=== PATIENT | male | born 1945 | race Caucasian/White ===

== ENCOUNTER → 2018-05-26 | Outpatient (CLI) | payer OTHER ==
--- NOTE | 2018-05-26 08:12 | US ---
EXAMINATION TYPE: US liver DATE OF EXAM: 05/26/2018 COMPARISON: US report from a [place] US CLINICAL HISTORY: R94.5 Abnormal liver functions. EXAM MEASUREMENTS: Liver Length: 11.3 cm Gallbladder Wall: 0.5 cm CBD: 0.5 cm Right Kidney: 12.3 x 6.3 x 5.9 cm Limited exam due to midline bowel gas. Pancreas: not well visualized due to midline bowel gas Liver: limited visualization due to bowel gas Gallbladder: appears contracted, multiple stones seen, wall thickened Evidence for sonographic Hannah's sign: No CBD: wnl Right Kidney: No hydronephrosis or masses seen IMPRESSION: 1 cholelithiasis with gallbladder contraction. Wall thickening noted without pericholecys tic fluid or CBD dilatation. Correlate clinically.
== END | disposition home or self-care (01) ==
LOC: RADUSWWP 07:26
PROVIDERS: ATTEND Family Medicine
DX: K80.11 Calculus of gallbladder with chronic cholecystitis with obstruction (principal)
CPT/HCPCS: 76705

== ENCOUNTER → 2018-06-07 | Outpatient (CLI) | payer MEDICARE ==
[2018-06-07 12:55] LABS: Blood Urea Nitrogen 22 mg/dL (9-20)
--- NOTE | 2018-06-08 07:17 | CT ---
EXAMINATION TYPE: CT abdomen pelvis w con DATE OF EXAM: 06/07/2018 COMPARISON: None INDICATION: Cholelithiasis DLP: 1548.2 mGycm, Automated exposure control for dose reduction was used. CONTRAST: 100 mL of Isovue 300. Study performed with Oral Contrast TECHNIQUE: Axial images were obtained from above the diaphragm to the pubic rami in the axial plane a t 5 mm thick sections. Reconstructed images are reviewed on the computer in the coronal plane. FINDINGS: Limited CT sections are obtained the lung bases. There is a 0.8 cm nodular density in the periphery of the right middle lobe. Series 4 image 5 pleural-based tiny density measuring 0.6 cm in length on t he lateral right lung base. Series 4 image 10. A 0.8 cm lobular densities along the periphery of the lateral left lung base. Series 4 image 16. Other calcifications along the right diaphragm. Prior asbe stos exposure could be considered. Small hiatal hernia may be present. CT ABDOMEN: Liver: Normal. No biliary dilatation is evident. Spleen: Normal Pancreas: Normal Adrenal glands: The adrenal glands are normal. Gallbladder: Gallstones are present. No pericholecystic fluid is identified. Kidneys: No masses are evident. No hydronephrosis is present. There is a 2.3 cm cyst measuring 10 H [place] units on the anterior mid left kidney. Extrarenal pelvis is present on the left. Delayed i mages were obtained through the kidneys, which remain unremarkable. Aorta: Vascular calcification is within the aorta. Inferior vena cava: Normal. CT PELVIS: Loops of bowel within the abdomen and pelvis are normal. There are loops of bowel which are incom pletely distended or lack oral contrast limiting their evaluation. Appendix: Normal as visualized. Urinary bladder: Small urinary bladder diverticulum is present on the posterior lateral right. Genitourinary structures: Prostate is normal. Osseous structures: No suspicious lytic or sclerotic lesions. Facet changes are within the lumbar spi ne IMPRESSIONS: 1. Left renal simple appearing cyst. 2. Cholelithiasis. 3. Probable urinary bladder diverticulum. 4. Scattered small densities within the visualized lung bases. CT chest could be performed for additi onal evaluation.
== END | disposition home or self-care (01) ==
LOC: RADCTMAIN 11:59
PROVIDERS: ATTEND Surgery
DX: K80.20 Calculus of gallbladder without cholecystitis without obstruction (principal); N28.1 Cyst of kidney, acquired
CPT/HCPCS: 82565; 84520; 74177; 36415; Q9967

== ENCOUNTER → 2018-06-23 | Day surgery (SDC) | payer MEDICARE, OTHER ==
[2018-06-20 09:21] VITALS: BMI 33.2
[~2018-06-23] MED LIST: DEXAMETHASONE SOD PHOS (MDV) 100 MG/10 ML VIAL IVP ONE; GLYCOPYRROLATE 0.2 MG/ML 2 ML VIAL ONE; HYDROmorphone (PF) 1 MG/ML ONE; LACTATED RINGERS 1,000 ML IV ONE; LACTATED RINGERS 1,000 ML IV SCH; LIDOCAINE 1% 20 ML VIAL (10MG/ML) FOR IV START INTRADERMA ONE; LIDOCAINE 1% INJ 10MG/ML (20 ML MDV) ONE; MIDAZOLAM 2 MG/2 ML VIAL ONE; NEOSTIGMINE 1 MG/ML 10 ML VIAL ONE; ONDANSETRON 4 MG/2 ML VIAL IVP ONE; ROCURONIUM BROMIDE 10 MG/ML 10 ML VIAL IV ONE; ROPIVACAINE 5 MG/ML 30 ML VIAL MISCELLANE ONE; ceFAZolin IN SWFI 2 GM/20 ML SYRINGE IVP ONE; ePHEDrine SULFATE/0.9% NACL/PF 50 MG/5 ML SYRINGE IV ONE; fentaNYL (PF) 50 MCG/ML 2 ML AMP ONE
[2018-06-23 10:37] LABS: Glucose,Whole Blood 110 mg/dL (75-99)
--- NOTE | 2018-06-23 13:47 | P.OP ---
Date of Procedure: 06/23/18 Preoperative Diagnosis: Cholelithiasis chronic cholecystitis Postoperative Diagnosis: Cholelithiasis chronic cholecystitis with possible early cirrhosis Procedure(s) Performed: Laparoscopic cholecystectomy and laparoscopic liver biopsy Anesthesia: BRADLEY Surgeon: Alan Uriarte Estimated Blood Loss (ml): 20 Pathology: other (Gallbladder with stones and liver biopsy) Condition: stable Disposition: PACU Indications for Procedure: The patient is a 73-year-old white male who has symptomatic gallstones. Slight elevation of his bilirubin to 1.8 but other liver enzymes were unremarkable. Laparoscopic cholecystectomy possible open was recommended and informed consent was obtained procedure have been explained to her including potential complication particular bleeding infection surrounding injury pain cardiac respiratory problems etc. he understood and agree to proceed. Ultrasound showed multiple gallstones and a computed tomography scan was unremarkable for any obstructive condition. Operative Findings: Cholelithiasis chronic cholecystitis with a small contracted gallbladder hepatomegaly and some nodularity of the liver consistent with possible early cirrhosis. Description of Procedure: After induction of general endotracheal anesthesia the abdominal wall was prepped in the usual fashion and draped. Local anesthetic Marcaine 0.5% plain was infiltrated into the skin and subcutaneous tissue just below the umbilicus where a transverse incision was made about the 2 cm and deepened through the subcutaneous fat. The fascia was exposed infiltrated with the Marcaine retracted and a Veress needle inserted under direct vision with a satisfactory saline drop test. The peritoneal cavity were then inflated with carbon dioxide to pressure approximately 15 millimeters mercury. The needle was replaced with a 10 mm trocar and the laparoscope inserted. 2-5 mm trochars were placed in the right upper quadrant and another 5 mm trocar in the epigastrium under direct vision under local anesthesia. Visual exploration revealed some nodularity of the liver more micronodules with hepatomegaly. The gallbladder was very small contracted and there were extensive omental adhesions to it. It was difficult to grasp and retract. There were some omental adhesions in the right lower quadrant. The omental adhesion to the gallbladder carefully lysed sharply dissection using electrocautery until the entire gallbladder was exposed. The area of the neck was then very carefully dissected this been very difficult because of the very small thickened and chronically inflamed gallbladder. The cystic duct was also quite thick and it was exposed and skeletonized along its length and the junction with the gallbladder, duct well visualized. Due to the thickness of the cystic duct 12 mm clips had to be used with replacement of the 10 mm trocar with a 12 mm trocar in the umbilical area. The cystic duct closure was further reinforced and closed with a 2-0 Prolene Endoloops suture. The cystic artery was then identified little more superiorly and this was dissected doubly clipped and divided. The gallbladder was then dissected from its bed and removed through the umbilical port site in an Endo Catch bag. Supra and infrahepatic spaces were thoroughly irrigated. Hemostasis was good and the field was dry. A punch liver biopsy was obtained from the anterior inferior edge of the liver and hemostasis secured with electrocautery. All trochars were then removed and vision after the umbilical port site was closed with a 2- 0 Vicryl stitch using the Bradley Torres apparatus CO2 was evacuated. Umbilical and other trocar sites were closed with the interrupted 4-0 Monocryl for the skin and Steri-Strips. Dressings were applied. All counts were correct. Blood loss was less than 20 mL's. The patient remained stable was transferred to the recovery room in good and stable condition. After an adequate period of observation patient with discharged home. Advised on a low-fat diet. [place] 5/325 one every 4-6 hours when necessary for pain. No heavy lifting or straining for a week. May shower from tomorrow. Return appointment to the office in about a week. May resume his home meds. Plan - Discharge Summary New Discharge Prescriptions: No Action glipiZIDE [Glucotrol XL] 10 mg PO DAILY Lisinopril [Zestril] 10 mg PO DAILY Levothyroxine Sodium [Levo-T] 150 mcg PO DAILY Simvastatin 40 mg PO DAILY Aspirin [Adult Low Dose Aspirin EC] 81 mg PO DAILY Discharge Medication List Aspirin [Adult Low Dose Aspirin EC] 81 mg PO DAILY 06/20/18 [History] Levothyroxine Sodium [Levo-T] 150 mcg PO DAILY 06/20/18 [History] Lisinopril [Zestril] 10 mg PO DAILY 06/20/18 [History] Simvastatin 40 mg PO DAILY 06/20/18 [History] glipiZIDE [Glucotrol XL] 10 mg PO DAILY 06/20/18 [History]
[2018-06-23 13:54] VITALS: RESP 16; TEMP 97.1
[2018-06-23 14:04] LABS: Glucose,Whole Blood 154 mg/dL (75-99)
[2018-06-23 15:32] VITALS: BP 110/76; PULSE 63
== END ==
LOC: OR 09:34
PROVIDERS: ATTEND Surgery
DX: K80.10 Calculus of gallbladder with chronic cholecystitis without obstruction (principal); R16.0 Hepatomegaly, not elsewhere classified; K66.0 Peritoneal adhesions (postprocedural) (postinfection); I10 Essential (primary) hypertension; E78.00 Pure hypercholesterolemia, unspecified; E03.9 Hypothyroidism, unspecified; E10.9 Type 1 diabetes mellitus without complications; Z79.84 Long term (current) use of oral hypoglycemic drugs; Z79.82 Long term (current) use of aspirin; Z79.890 Hormone replacement therapy; Z79.899 Other long term (current) drug therapy
CPT/HCPCS: 47562; 47379; 88304; 88313; 88307; J2250; J2710; J2405; J2001; J3010; J1170; J1100; J2795; J0690

== ENCOUNTER → 2018-08-07 | Outpatient (CLI) | payer MEDICARE ==
[2018-08-07 08:24] LABS: Blood Urea Nitrogen 18 mg/dL (9-20)
--- NOTE | 2018-08-07 08:59 | CT ---
EXAMINATION TYPE: CT chest w con DATE OF EXAM: 08/07/2018 COMPARISON: None HISTORY: Density in Lung CT DLP: 431.0 mGycm Automated exposure control for dose reduction was used. CONTRAST: CT scan of the chest is performed with IV Contrast, patient injected with 100 mL of Isovue 300. 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 Pleural-based nodular density left lateral sulcus measuring 8 mm image 49 of 58. Pleural-based nod ule lateral segment right middle lobe measures 5.7 mm. Additional 2 mm nodule lateral segment right m iddle lobe images 37 and 36. Right upper lobe 3 mm nodule image 29. No additional nodules seen. No ev idence for mass or focal consolidation. MEDIASTINUM: There are no greater than 1 cm hilar or mediastinal lymph nodes. No pericardial effusi on is seen. Thoracic aorta is of normal caliber. The heart is not enlarged. UPPER ABDOMEN: No significant abnormality appreciated. OTHER: No additional significant abnormality is seen. IMPRESSION: As best as related pleural disease. 2. Scattered nonspecific pulmonary nodularity. Follow-up in 6 months is advised.
== END | disposition home or self-care (01) ==
LOC: RADCTMAIN 07:35
PROVIDERS: ATTEND Surgery
DX: J92.9 Pleural plaque without asbestos (principal); R91.1 Solitary pulmonary nodule
CPT/HCPCS: 82565; 84520; 71260; 36415; Q9967

== ENCOUNTER 2018-12-31 12:36 | Inpatient (IN) | payer MEDICARE, OTHER ==
[2018-12-31] MEDS ORDERED: SODIUM CHLORIDE 0.9% 1,000 ML IV STA (12:48)
--- NOTE | 2018-12-31 12:49 | ED ---
Chest Pain HPI - General Chief Complaint: Chest Pain Stated Complaint: sent by [facility] Time Seen by Provider: 12/31/18 12:48 Source: patient Mode of arrival: ambulatory Limitations: no limitations - History of Present Illness Initial Comments: This is a 73-year-old male the ER for evaluation chest pain chest pain when he takes a deep breath. Chest. Positive short of breath with movement or activity. Patient was seen emetics rest today and sent to ER for evaluation. Patient does have PVCs on his EKG when he states he has history of PVCs, patient does have high blood pressure cholesterol diabetes and a history of smoking. No prior cardiac evaluation. No fevers cough or congestion MD Complaint: chest pain -: hour(s) Onset: during rest Pain Location: substernal, left chest Pain Radiation: none Severity: mild Severity scale (1-10): 3 Quality: heaviness Consistency: constant Improves With: nothing Worsens With: nothing Anginal Symptoms: other (None) Other Symptoms: other (None) - Related Data Home Medications Medication Instructions Recorded Confirmed Levothyroxine Sodium [Levo-T] 150 mcg PO HS 06/20/18 12/31/18 Lisinopril [Zestril] 10 mg PO DAILY 06/20/18 12/31/18 Simvastatin 40 mg PO HS 06/20/18 12/31/18 glipiZIDE [Glucotrol XL] 10 mg PO DAILY 06/20/18 12/31/18 Cholecalciferol [Vitamin D3] 5,000 unit PO DAILY 12/31/18 12/31/18 Naproxen Sodium [Aleve] 220 mg PO DAILY 12/31/18 12/31/18 Testosterone Cypionate 200 mg IM Q21D 12/31/18 12/31/18 [Depo-Testosterone] Allergies Allergy/AdvReac Type Severity Reaction Status Date / Time No Known Allergies Allergy Verified 12/31/18 13:08 Review of Systems ROS Statement: Those systems with pertinent positive or pertinent negative responses have been documented in the HPI. ROS Other: All systems not noted in ROS Statement are negative. EKG Findings - EKG Comments: EKG Findings:: EKG shows sinus tach cardia rate of 101, SC 144, QRS 84, QTC 443 Past Medical History Past Medical History: Diabetes Mellitus, Hyperlipidemia, Hypertension, Thyroid Disorder History of Any Multi-Drug Resistant Organisms: None Reported Past Surgical History: Cholecystectomy Past Psychological History: No Psychological Hx Reported Smoking Status: Former smoker Past Alcohol Use History: Occasional Past Drug Use History: None Reported General Exam Limitations: no limitations General appearance: alert, in no apparent distress Head exam: Present: atraumatic, normocephalic, normal inspection Eye exam: Present: normal appearance, PERRL, EOMI. Absent: scleral icterus, conjunctival injection, periorbital swelling ENT exam: Present: normal exam, mucous membranes moist Neck exam: Present: normal inspection. Absent: tenderness, meningismus, lymphadenopathy Respiratory exam: Present: normal lung sounds bilaterally. Absent: respiratory distress, wheezes, rales, rhonchi, stridor Cardiovascular Exam: Present: regular rate, normal rhythm, normal heart sounds. Absent: systolic murmur, diastolic murmur, rubs, gallop, clicks GI/Abdominal exam: Present: soft, normal bowel sounds. Absent: distended, tenderness, guarding, rebound, rigid Extremities exam: Present: normal inspection, full ROM, normal capillary refill. Absent: tenderness, pedal edema, joint swelling, calf tenderness Back exam: Present: normal inspection Neurological exam: Present: alert, oriented X3, CN II-XII intact Psychiatric exam: Present: normal affect, normal mood Skin exam: Present: warm, dry, intact, normal color. Absent: rash Course Vital Signs 12/31/18 12/31/18 12/31/18 12:39 14:00 14:30 Temperature 98.0 F Pulse Rate 100 101 H 98 Respiratory 18 18 18 Rate Blood Pressure 120/76 109/50 111/59 O2 Sat by Pulse 96 95 94 L Oximetry - Reevaluation(s) Reevaluation #1: 12/31/18 13:18 Medical record is reviewed including my express EKG Reevaluation #2: 12/31/18 15:26 Patient still with same pain currently mainly with shortness of breath, mainly takes a deep breath Reevaluation #3: 12/31/18 15:26 Studies Chest x-ray shows pneumonia and pleural effusion, CTA chest shows same findings, no PE Chest Pain MDM - MDM Every 4 male with chest pain exertional dyspnea. Patient does have significant pneumonia with leukocytosis oxygen around 90%. Patient will be admitted for treatment of pneumonia and cardiology evaluation regarding pleural effusion possible CHF. As well as chest pain Critical Care Time Critical Care Time: Yes Total Critical Care Time: 31 Disposition Clinical Impression: Chest pain, Community acquired pneumonia, Pleural effusion Disposition: ADMITTED IP TO THIS HOSP Condition: Fair Is patient prescribed a controlled substance at d/c from ED?: No Referrals: Demar Tee DO [Primary Care Provider] - 1-2 days
--- NOTE | 2018-12-31 13:56 | XR ---
EXAMINATION TYPE: XR chest 2V DATE OF EXAM: 12/31/2018 COMPARISON: None INDICATION: Chest pain TECHNIQUE: Frontal and lateral views of the chest are obtained. FINDINGS: The heart size is normal. The pulmonary vasculature is normal. There is blunting of the right costophrenic angle. Small right pleural effusion appears to be present . Some adjacent infiltrate may be present. Correlate for atelectasis and pneumonia. Some mild atelect asis appears to be at the left base. IMPRESSION: 1. Small right pleural effusion. 2. Right basilar infiltrate. Correlate for atelectasis or pneumonia. 3. Platelike atelectasis left base.
[2018-12-31 14:01] LABS: Basophils % (A) 0 %; Eosinophils # (A) 0.1 k/uL (0-0.7); Eosinophils % (A) 0 %; HCT 54.4 % (39.0-53.0); HGB 17.5 gm/dL (13.0-17.5); Lymphocytes # (A) 2.4 k/uL (1.0-4.8); Lymphocytes % (A) 11 %; MCH 29.2 pg (25.0-35.0); MCHC 32.2 g/dL (31.0-37.0); MCV 90.7 fL (80.0-100.0); Mean Platelet Volume 7.6; Monocytes # (A) 1.8 k/uL (0-1.0); Monocytes % (A) 8 %; Neutrophils # (A) 17.8 k/uL (1.3-7.7); Neutrophils % (A) 80 %; Platelet Count 213 k/uL (150-450); RBC 5.99 m/uL (4.30-5.90); RDW 15.2 % (11.5-15.5); WBC 22.4 k/uL (3.8-10.6)
[2018-12-31 14:20] LABS: Albumin 3.7 g/dL (3.5-5.0); Calcium 9.6 mg/dL (8.4-10.2); Magnesium 1.8 mg/dL (1.6-2.3); Total Bilirubin 2.4 mg/dL (0.2-1.3)
[2018-12-31 14:22] LABS: Potassium 4.9 mmol/L (3.5-5.1)
[2018-12-31 14:39] LABS: INR 1.2 (<1.2); Partial Thromboplastin Time 27.2 sec (22.0-30.0); Prothrombin Time 12.6 sec (9.0-12.0)
--- NOTE | 2018-12-31 15:09 | CT ---
EXAMINATION TYPE: CT angio chest DATE OF EXAM: 12/31/2018 2:58 PM COMPARISON: None HISTORY: chest pain, hx of htn CT DLP: 457.2 mGycm Automated exposure control for dose reduction was used. CONTRAST: CTA scan of the thorax is performed with IV Contrast, patient injected with 72cc mL of Isovue 370, pu lmonary embolism protocol. There are 3-D post processed images.. FINDINGS: There is right pleural effusion. There is bilateral lower lobe pulmonary infiltrate and atelectasis. Heart is enlarged. There is no pericardial effusion. There is no mediastinal adenopathy. There are no hilar masses. Thoracic aorta is atheromatous. There is normal contrast opacification of the pulmonar y arteries. I see no filling defect. The bony thorax is intact. There is spurring in the thoracic spi ne. There is pleural calcification on the right side. IMPRESSION: NO EVIDENCE OF PULMONARY EMBOLISM. BILATERAL PULMONARY INFILTRATES AND ATELECTASIS. RIGHT PLEURAL EFFUSION. CONGESTIVE HEART FAILURE IS POSSIBLE. The extensive pulmonary infiltrates and pleural fluid are new compared to old chest CT scan of 08/07/2018.
[2018-12-31] MEDS ORDERED: NITROGLYCERIN SL TABS 0.4 MG TAB SUBLINGUAL PRN (15:20)
[2018-12-31] MEDS ORDERED: ASPIRIN 81 MG PO STA (15:20)
[2018-12-31] MEDS ORDERED: PNEUMONIA PROTOCOL UTILIZED 1 EACH MISC PO PRN (15:20)
[2018-12-31] MEDS ORDERED: AZITHROMYCIN 500 MG in SODIUM CHLORIDE 0.9% 250 ML IVPB STA (15:20)
[2018-12-31] MEDS ORDERED: IPRATROPIUM-ALBUTEROL 3 ML NEB INHALATION PRN (15:20)
[2018-12-31] MEDS ORDERED: IPRATROPIUM-ALBUTEROL 3 ML NEB INHALATION STA (15:20)
[2018-12-31 21:07] LABS: Glucose,Whole Blood 150 mg/dL (75-99)
[2018-12-31] MEDS: LEVOTHYROXINE 75 MCG TAB PO SCH (22:26)
[2018-12-31] MEDS: ATORVASTATIN 20 MG TAB PO SCH (22:26)
[2018-12-31] MEDS: SODIUM CHLORIDE 0.9% 1,000 ML IV SCH (23:55)
[2019-01-01 00:40] LABS: Cholesterol 76 mg/dL (<200); HDL Cholesterol 28 mg/dL (40-60); LDL Cholesterol,Calculated 34 mg/dL (0-99); Triglycerides 71 mg/dL (<150)
[2019-01-01] MEDS: SODIUM CHLORIDE 0.9% 1,000 ML IV SCH ×3 (02:36→21:30)
[2019-01-01 06:13] LABS: Glucose,Whole Blood 96 mg/dL (75-99)
[2019-01-01] MEDS: INSULIN ASPART (NovoLOG) 100 UNIT/ML VIAL SQ SCH ×4 (06:29→21:28)
[2019-01-01] MEDS ORDERED: ASPIRIN 325 MG TAB PO SCH (09:00)
[2019-01-01] MEDS ORDERED: ENOXAPARIN 40 MG/0.4 ML SYRINGE SQ SCH (09:00)
--- NOTE | 2019-01-01 09:00 | XR ---
EXAMINATION TYPE: XR chest 2V DATE OF EXAM: 01/01/2019 COMPARISON: 12/31/2018 TECHNIQUE: PA and lateral views submitted. HISTORY: Pneumonia FINDINGS: There is interval increased consolidation pleural effusion on the right and interval subsegmental con solidation on the left. Perihilar infiltrate is new. Biapical pleural thickening. Interstitial patter n noted. Atherosclerotic change aorta. Arthropathy of the shoulders. IMPRESSION: 1. Worsening chest x-ray with increasing consolidation and pleural fluid on the right. Correlate for worsening pneumonia or CHF.
[2019-01-01] MEDS: glipiZIDE 5 MG TAB PO SCH ×2 (09:10→17:19)
[2019-01-01] MEDS: NAPROXEN 250 MG TAB PO SCH (09:17)
[2019-01-01] MEDS: LISINOPRIL 10 MG TAB PO SCH (09:28)
[2019-01-01] MEDS: CHOLECALCIFEROL 1,000 UNIT TAB PO SCH (09:28)
--- NOTE | 2019-01-01 09:34 | P.CRDCN ---
History of Present Illness Consult date: 01/01/19 Requesting physician: Christine Jennings Consult reason: chest pain Chief complaint: Chest pain History of present illness: This is a pleasant 73-year-old gentleman with history of hypertension, hyperlipidemia, hypothyroidism, diabetes, nonsmoker, who presented to the hospital with symptoms of right-sided chest pain which she describes as a sharp pain in the chest that is present only when he takes a deep breath or coughs. According to the patient he and his both have been dealing with a cough at home for the past few days. He denies any fever or chills at home. His chest x-ray on admission here showed a small right-sided pleural effusion and right basilar infiltrate. CTA of the chest was performed on arrival here as well which was negative for pulmonary embolism. It did reveal bilateral pulmonary infiltrates and atelectasis. Right-sided pleural effusion. EKG showed a sinus tachycardia with occasional PVCs. Chest x-ray showed worsening consolidation and pleural fluid on the right. Blood pressure on arrival 120/70 with a heart rate of 100, temperature 90.8, 96% on room air. Patient did have a low-grade temperature yesterday afternoon, temperature this morning 98.1, heart rate in the 70s, blood pressure 146/80, 93% on 2 L of oxygen. White blood cell count on arrival here 22.4, hemoglobin 17, platelet count 213. Sodium 135, potassium 4.9, BUN 25 and creatinine 1.0. Magnesium 1.8. Troponin 0.0123, BNP 209. Past Medical History Past Medical History: Diabetes Mellitus, Hyperlipidemia, Hypertension, Thyroid Disorder History of Any Multi-Drug Resistant Organisms: None Reported Past Surgical History: Cholecystectomy Past Psychological History: No Psychological Hx Reported Smoking Status: Former smoker Past Alcohol Use History: Occasional Past Drug Use History: None Reported - Past Family History Father Family Medical History: Diabetes Mellitus Medications and Allergies Home Medications Medication Instructions Recorded Confirmed Type Levothyroxine Sodium [Levo-T] 150 mcg PO HS 06/20/18 12/31/18 History Lisinopril [Zestril] 10 mg PO DAILY 06/20/18 12/31/18 History Simvastatin 40 mg PO HS 06/20/18 12/31/18 History glipiZIDE [Glucotrol XL] 10 mg PO DAILY 06/20/18 12/31/18 History Cholecalciferol [Vitamin D3] 5,000 unit PO DAILY 12/31/18 12/31/18 History Naproxen Sodium [Aleve] 220 mg PO DAILY 12/31/18 12/31/18 History Testosterone Cypionate 200 mg IM Q21D 12/31/18 12/31/18 History [Depo-Testosterone] Allergies Allergy/AdvReac Type Severity Reaction Status Date / Time No Known Allergies Allergy Verified 12/31/18 13:08 Physical Exam Vitals: Vital Signs Temp Pulse Pulse Resp BP BP Pulse Ox 01/01/19 08:00 98.1 F 76 18 147/85 93 L 01/01/19 04:00 98.6 F 87 18 109/64 92 L 01/01/19 00:00 98.7 F 88 18 139/74 93 L 12/31/18 20:00 16 12/31/18 19:02 98.1 F 102 H 20 151/71 92 L 12/31/18 18:00 98.4 F 101 H 18 110/66 94 L 12/31/18 16:30 83 20 115/65 95 12/31/18 15:50 86 12/31/18 15:41 85 12/31/18 15:40 99.0 F 99 16 126/62 92 L 12/31/18 15:30 97.8 F 99 18 120/74 96 12/31/18 14:30 98 18 111/59 94 L 12/31/18 14:00 101 H 18 109/50 95 12/31/18 12:39 98.0 F 100 18 120/76 96 Intake and Output 12/31/18 01/01/19 01/01/19 22:59 06:59 14:59 Other: Voiding Method Toilet Weight 104.36 kg PHYSICAL EXAMINATION: GENERAL: 73-year-old gentleman in no acute distress at the time of my examination HEENT: Head is atraumatic, normocephalic. Pupils equal, round. Sclera anicteric. Conjunctiva are clear. Mucous membranes of the mouth are moist. Neck is supple. There is no elevated jugular venous pressure. No carotid bruit is heard. HEART EXAMINATION: Heart S1, S2 normal. No murmur or gallop heard. CHEST EXAMINATION: Lungs reveal diminished air entry to the right posterior base with fine crackles bilaterally. ABDOMEN: Soft, nontender. Bowel sounds are heard. No organomegaly noted. EXTREMITIES: 2+ peripheral pulses with trace evidence of peripheral edema and no calf tenderness noted. NEUROLOGIC patient is awake, alert and oriented 3 . . Results 12/31/18 13:00 12/31/18 13:00 Cardiac Enzymes 12/31/18 12/31/18 12/31/18 Range/Units 13:00 13:00 19:09 AST 35 (17-59) U/L Troponin I <0.012 <0.012 (0.000-0.034) ng/mL 01/01/19 Range/Units 00:45 AST (17-59) U/L Troponin I <0.012 (0.000-0.034) ng/mL Coagulation 12/31/18 Range/Units 13:00 PT 12.6 H (9.0-12.0) sec APTT 27.2 (22.0-30.0) sec Lipids 12/31/18 Range/Units 13:00 Triglycerides 71 (<150) mg/dL Cholesterol 76 (<200) mg/dL HDL Cholesterol 28 L (40-60) mg/dL CBC 12/31/18 Range/Units 13:00 WBC 22.4 H (3.8-10.6) k/uL RBC 5.99 H (4.30-5.90) m/uL Hgb 17.5 (13.0-17.5) gm/dL Hct 54.4 H (39.0-53.0) % Plt Count 213 (150-450) k/uL Comprehensive Metabolic Panel 12/31/18 Range/Units 13:00 Sodium 135 L (137-145) mmol/L Potassium 4.9 (3.5-5.1) mmol/L Chloride 103 (98-107) mmol/L Carbon Dioxide 21 L (22-30) mmol/L BUN 25 H (9-20) mg/dL Creatinine 1.09 (0.66-1.25) mg/dL Glucose 185 H (74-99) mg/dL Calcium 9.6 (8.4-10.2) mg/dL AST 35 (17-59) U/L ALT 36 (21-72) U/L Alkaline Phosphatase 122 (38-126) U/L Total Protein 8.0 (6.3-8.2) g/dL Albumin 3.7 (3.5-5.0) g/dL Current Medications Generic Name Dose Route Start Last Admin Trade Name Freq PRN Reason Stop Dose Admin Albuterol/Ipratropium 3 ml 12/31/18 15:20 Duoneb 0.5 Mg-3 Mg/3 Ml Soln INHALATION RT-Q4H PRN shortness of breath Aspirin 325 mg 01/01/19 09:00 Aspirin PO DAILY [facility] Atorvastatin Calcium 20 mg 12/31/18 21:00 12/31/18 22:26 Lipitor PO 20 mg HS [facility] Administration Cholecalciferol 5,000 unit 01/01/19 09:00 Vitamin D3 PO DAILY [facility] Enoxaparin Sodium 40 mg 01/01/19 09:00 Lovenox SQ DAILY [facility] Glipizide 5 mg 01/01/19 07:30 01/01/19 09:10 Glucotrol PO Not Given AC-BID [facility] Azithromycin 500 mg/ Sodium 250 mls @ 125 mls/hr 01/01/19 16:00 Chloride IVPB Q24H [facility] Ceftriaxone Sodium 1 gm/ 50 mls @ 100 mls/hr 01/01/19 16:00 Sodium Chloride IVPB 01/04/19 16:01 Q24H [facility] Sodium Chloride 1,000 mls @ 100 mls/hr 12/31/18 15:30 01/01/19 02:36 Saline 0.9% IV Not Given .Q10H [facility] Insulin Aspart 0 unit 01/01/19 07:30 01/01/19 06:29 Novolog SQ Not Given ACHS [facility] Protocol Levothyroxine Sodium 150 mcg 12/31/18 21:00 12/31/18 22:26 Synthroid PO 150 mcg HS [facility] Administration Lisinopril 10 mg 01/01/19 09:00 Zestril PO DAILY [facility] Miscellaneous Information 1 each 12/31/18 15:20 Pneumonia Protocol Utilized PO ONCE PRN Per Protocol Naproxen 250 mg 01/01/19 09:00 01/01/19 09:17 Naprosyn PO Not Given DAILY [facility] Nitroglycerin 0.4 mg 12/31/18 15:20 Nitrostat SUBLINGUAL Q5M PRN Chest Pain Testosterone Cypionate 200 mg 01/03/19 09:00 Depo-Testosterone IM Q21D [facility] Intake and Output 12/31/18 01/01/19 01/01/19 22:59 06:59 14:59 Other: Voiding Method Toilet Weight 104.36 kg 12/31/18 13:00 12/31/18 13:00 EKG Interpretations (text) EKG shows a sinus tachycardia with occasional to frequent PVCs. Assessment and Plan Plan: Assessment and plan #1 chest pain, atypical for acute coronary syndrome, pleuritic in nature. Troponins negative 3. EKG shows a sinus tachycardia with occasional to frequent PVCs. #2 bilateral infiltrate with evidence of right sided pleural effusion, patient currently on antibiotics for pneumonia. #3 hypertension #4 diabetes #5 hyperlipidemia #6 hypothyroidism Plan The patient's pain is very atypical for acute coronary syndrome, we will obtain an echocardiogram with Doppler study. Discontinue Lanoxin apparent. Decrease aspirin 81 mg daily. Check a TSH level. Patient denies ever having a cardiac workup in the past, once his pneumonia clears we will follow him in the office and do outpatient stress testing down the road. Further recommendations to follow. DNP note has been reviewed, I agree with a documented findings and plan of care. Patient was seen and examined.
--- NOTE | 2019-01-01 10:44 | P.CRDCN ---
History of Present Illness History of present illness: 69 for a male patient presenting with pleuritic chest discomfort right-sided with bilateral pneumonitis Underlying type 2 diabetes and hypertension Twelve-lead ECG shows sinus rhythm with frequent PVCs PVCs have a left bundle branch block morphology and a QS pattern in the inferior leads 2-D echo shows preserved LV systolic function LDL 34 HDL 28 total cholesterol 76 BUN 25 creatinine 1.09 GFR greater than 60 potassium normal Elevated white count with a leftward shift Plan Watch blood pressure and maximize lisinopril as tolerated/needed Outpatient cardiac workup Continue treatment for pneumonitis I will see him as an outpatient within 4 weeks post discharge Past Medical History Past Medical History: Diabetes Mellitus, Hyperlipidemia, Hypertension, Thyroid Disorder History of Any Multi-Drug Resistant Organisms: None Reported Past Surgical History: Cholecystectomy Past Psychological History: No Psychological Hx Reported Smoking Status: Former smoker Past Alcohol Use History: Occasional Past Drug Use History: None Reported - Past Family History Father Family Medical History: Diabetes Mellitus Medications and Allergies Home Medications Medication Instructions Recorded Confirmed Type Levothyroxine Sodium [Levo-T] 150 mcg PO HS 06/20/18 12/31/18 History Lisinopril [Zestril] 10 mg PO DAILY 06/20/18 12/31/18 History Simvastatin 40 mg PO HS 06/20/18 12/31/18 History glipiZIDE [Glucotrol XL] 10 mg PO DAILY 06/20/18 12/31/18 History Cholecalciferol [Vitamin D3] 5,000 unit PO DAILY 12/31/18 12/31/18 History Naproxen Sodium [Aleve] 220 mg PO DAILY 12/31/18 12/31/18 History Testosterone Cypionate 200 mg IM Q21D 12/31/18 12/31/18 History [Depo-Testosterone] Allergies Allergy/AdvReac Type Severity Reaction Status Date / Time No Known Allergies Allergy Verified 12/31/18 13:08 Physical Exam Vitals: Vital Signs Temp Pulse Pulse Resp BP BP Pulse Ox 01/01/19 08:00 98.1 F 76 18 147/85 93 L 01/01/19 04:00 98.6 F 87 18 109/64 92 L 01/01/19 00:00 98.7 F 88 18 139/74 93 L 12/31/18 20:00 16 12/31/18 19:02 98.1 F 102 H 20 151/71 92 L 12/31/18 18:00 98.4 F 101 H 18 110/66 94 L 12/31/18 16:30 83 20 115/65 95 12/31/18 15:50 86 12/31/18 15:41 85 12/31/18 15:40 99.0 F 99 16 126/62 92 L 12/31/18 15:30 97.8 F 99 18 120/74 96 12/31/18 14:30 98 18 111/59 94 L 12/31/18 14:00 101 H 18 109/50 95 12/31/18 12:39 98.0 F 100 18 120/76 96 Intake and Output 12/31/18 01/01/19 01/01/19 22:59 06:59 14:59 Other: Voiding Method Toilet Weight 104.36 kg Results 12/31/18 13:00 12/31/18 13:00 Cardiac Enzymes 12/31/18 12/31/18 12/31/18 Range/Units 13:00 13:00 19:09 AST 35 (17-59) U/L Troponin I <0.012 <0.012 (0.000-0.034) ng/mL 01/01/19 Range/Units 00:45 AST (17-59) U/L Troponin I <0.012 (0.000-0.034) ng/mL Coagulation 12/31/18 Range/Units 13:00 PT 12.6 H (9.0-12.0) sec APTT 27.2 (22.0-30.0) sec Lipids 12/31/18 Range/Units 13:00 Triglycerides 71 (<150) mg/dL Cholesterol 76 (<200) mg/dL HDL Cholesterol 28 L (40-60) mg/dL CBC 12/31/18 Range/Units 13:00 WBC 22.4 H (3.8-10.6) k/uL RBC 5.99 H (4.30-5.90) m/uL Hgb 17.5 (13.0-17.5) gm/dL Hct 54.4 H (39.0-53.0) % Plt Count 213 (150-450) k/uL Comprehensive Metabolic Panel 12/31/18 Range/Units 13:00 Sodium 135 L (137-145) mmol/L Potassium 4.9 (3.5-5.1) mmol/L Chloride 103 (98-107) mmol/L Carbon Dioxide 21 L (22-30) mmol/L BUN 25 H (9-20) mg/dL Creatinine 1.09 (0.66-1.25) mg/dL Glucose 185 H (74-99) mg/dL Calcium 9.6 (8.4-10.2) mg/dL AST 35 (17-59) U/L ALT 36 (21-72) U/L Alkaline Phosphatase 122 (38-126) U/L Total Protein 8.0 (6.3-8.2) g/dL Albumin 3.7 (3.5-5.0) g/dL Current Medications Generic Name Dose Route Start Last Admin Trade Name Freq PRN Reason Stop Dose Admin Albuterol/Ipratropium 3 ml 12/31/18 15:20 Duoneb 0.5 Mg-3 Mg/3 Ml Soln INHALATION RT-Q4H PRN shortness of breath Aspirin 81 mg 01/02/19 09:00 Aspirin PO DAILY [facility] Atorvastatin Calcium 20 mg 12/31/18 21:00 12/31/18 22:26 Lipitor PO 20 mg HS [facility] Administration Cholecalciferol 5,000 unit 01/01/19 09:00 01/01/19 09:28 Vitamin D3 PO 5,000 unit DAILY [facility] Administration Glipizide 5 mg 01/01/19 07:30 01/01/19 09:10 Glucotrol PO Not Given AC-BID [facility] Azithromycin 500 mg/ Sodium 250 mls @ 125 mls/hr 01/01/19 16:00 Chloride IVPB Q24H [facility] Ceftriaxone Sodium 1 gm/ 50 mls @ 100 mls/hr 01/01/19 16:00 Sodium Chloride IVPB 01/04/19 16:01 Q24H [facility] Sodium Chloride 1,000 mls @ 100 mls/hr 12/31/18 15:30 01/01/19 09:32 Saline 0.9% IV 100 mls/hr .Q10H [facility] Administration Insulin Aspart 0 unit 01/01/19 07:30 01/01/19 06:29 Novolog SQ Not Given ACHS [facility] Protocol Levothyroxine Sodium 150 mcg 12/31/18 21:00 12/31/18 22:26 Synthroid PO 150 mcg HS [facility] Administration Lisinopril 10 mg 01/01/19 09:00 01/01/19 09:28 Zestril PO 10 mg DAILY [facility] Administration Miscellaneous Information 1 each 12/31/18 15:20 Pneumonia Protocol Utilized PO ONCE PRN Per Protocol Naproxen 250 mg 01/01/19 09:00 01/01/19 09:17 Naprosyn PO Not Given DAILY [facility] Nitroglycerin 0.4 mg 12/31/18 15:20 Nitrostat SUBLINGUAL Q5M PRN Chest Pain Testosterone Cypionate 200 mg 01/03/19 09:00 Depo-Testosterone IM Q21D [facility] Intake and Output 12/31/18 01/01/19 01/01/19 22:59 06:59 14:59 Other: Voiding Method Toilet Weight 104.36 kg 12/31/18 13:00 12/31/18 13:00
[2019-01-01 11:28] LABS: Glucose,Whole Blood 178 mg/dL (75-99)
--- NOTE | 2019-01-01 12:05 | ECHOF ---
Referral Reason:chest pain MEASUREMENTS -------- HEIGHT: 182.9 cm WEIGHT: 104.3 kg BP: RVIDd: 2.7 cm (< 3.3) IVSd: 1.2 cm (0.6 - 1.1) LVIDd: 4.5 cm (3.9 - 5.3) LVPWd: 1.3 cm (0.6 - 1.1) IVSs: 1.5 cm LVIDs: 2.6 cm LVPWs: 1.9 cm Ao Diam: 3.3 cm (2.0 - 3.7) AV Cusp: 2.2 cm (1.5 - 2.6) LA Diam: 3.1 cm (2.7 - 3.8) MV EXCURSION: 13.666 mm (> 18.000) MV EF SLOPE: 53 mm/s (70 - 150) EPSS: 0.8 cm MV E Edvon: 0.51 m/s MV DecT: 244 ms MV A Devon: 0.71 m/s MV E/A Ratio: 0.71 RAP: 5.00 mmHg RVSP: 14.41 mmHg FINDINGS -------- Sinus rhythm with extra systolic beats. This was a technically difficult study with suboptimal views. The left ventricular size is normal. There is mild concentric left ventricular hypertrophy. Overa ll left ventricular systolic function is normal with, an EF between 55 - 60 %. The right ventricle is normal in size. The left atrial size is normal. The right atrial size is normal. Lumason used The aortic valve is trileaflet and appears structurally normal. There is trace mitral regurgitation. Trace tricuspid regurgitation present. The right ventricular systolic pressure, as measured by Dopp ler, is 14.41mmHg. There is no pulmonic regurgitation present. The aortic root size is normal. IVC Not well visulized. There is no pericardial effusion. CONCLUSIONS -------- 1. Sinus rhythm with extra systolic beats. 2. This was a technically difficult study with suboptimal views. 3. The left ventricular size is normal. 4. There is mild concentric left ventricular hypertrophy. 5. Overall left ventricular systolic function is normal with, an EF between 55 - 60 %. 6. The right ventricle is normal in size. 7. The left atrial size is normal. 8. The right atrial size is normal. 9. Lumason used 10. The aortic valve is trileaflet and appears structurally normal. 11. There is trace mitral regurgitation. 12. Trace tricuspid regurgitation present. 13. The right ventricular systolic pressure, as measured by Doppler, is 14.41mmHg. 14. There is no pulmonic regurgitation present. 15. The aortic root size is normal. 16. IVC Not well visulized. 17. There is no pericardial effusion. [employer]ER: Carolyn Cool RDCS
[2019-01-01 14:50] VITALS: BMI 32.1
[2019-01-01 15:04] LABS: Hemoglobin A1C 5.7 % (4.0-6.0)
[2019-01-01] MEDS ORDERED: AZITHROMYCIN 500 MG in SODIUM CHLORIDE 0.9% 250 ML IVPB SCH (16:00)
[2019-01-01 16:28] LABS: Glucose,Whole Blood 151 mg/dL (75-99)
[2019-01-01] MEDS: IPRATROPIUM-ALBUTEROL 3 ML NEB INHALATION SCH (19:32)
[2019-01-01] MEDS: LEVOTHYROXINE 75 MCG TAB PO SCH (21:33)
[2019-01-01] MEDS: ATORVASTATIN 20 MG TAB PO SCH (21:33)
--- NOTE | 2019-01-01 21:42 | P.HPIM ---
History of Present Illness H&P Date: 01/01/19 Chief Complaint: shortness of breath Patient is a 73-year-old male with a known history of diabetes type 2, hypertension, hyperlipidemia and hypothyroidism and history of previous smoking came to ER with the complaints of right lower lung sharp pain with deep breathing worsening for the past 2 days. Patient did have cough 1 week prior to admission. Otherwise denied any fever or chills at home. No complaints of nausea vomiting or abdominal pain or diarrhea. No dysuria or hematuria. Chest x-ray showed small right-sided pleural effusion and right basilar infiltrate. CT angiogram of the chest showed no evidence of pulmonary embolism. It didn't reveal bilateral pulmonary infiltrates and atelectasis. Right-sided pleural effusion. EKG showed sinus tachycardia with occasional PVCs Influenza negative Troponin 3 negative. BNP is 209 WBC 22.4 Review of Systems Constitutional: Patient denies any fever or chills . No generalized weakness or weight loss. Abdomen: Patient denied nausea vomiting and diarrhea and abdominal pain. Cardiovascular: Patient denies any chest pain or short of breath no palpitations. Respiratory: Patient does have cough without shortness of breath.. Right lower lung pain with deep breathing Neurologic: Patient denied any numbness or tingling headache. Musculoskeletal: Patient denies any complaints of joint swelling or deformity. Skin: Negative Psychiatric: Negative Endocrine: No heat or cold intolerance. No recent weight gain. Genitourinary: No dysuria or hematuria. All other 14 point ROS negative except the above Past Medical History Past Medical History: Diabetes Mellitus, Hyperlipidemia, Hypertension, Thyroid Disorder History of Any Multi-Drug Resistant Organisms: None Reported Past Surgical History: Cholecystectomy Past Psychological History: No Psychological Hx Reported Smoking Status: Former smoker Past Alcohol Use History: Occasional Past Drug Use History: None Reported - Past Family History Father Family Medical History: Diabetes Mellitus Medications and Allergies Home Medications Medication Instructions Recorded Confirmed Type Levothyroxine Sodium [Levo-T] 150 mcg PO HS 06/20/18 12/31/18 History Lisinopril [Zestril] 10 mg PO DAILY 06/20/18 12/31/18 History Simvastatin 40 mg PO HS 06/20/18 12/31/18 History glipiZIDE [Glucotrol XL] 10 mg PO DAILY 06/20/18 12/31/18 History Cholecalciferol [Vitamin D3] 5,000 unit PO DAILY 12/31/18 12/31/18 History Naproxen Sodium [Aleve] 220 mg PO DAILY 12/31/18 12/31/18 History Testosterone Cypionate 200 mg IM Q21D 12/31/18 12/31/18 History [Depo-Testosterone] Allergies Allergy/AdvReac Type Severity Reaction Status Date / Time No Known Allergies Allergy Verified 12/31/18 13:08 Physical Exam Vitals: Vital Signs Temp Pulse Pulse Resp BP BP Pulse Ox 01/01/19 08:00 98.1 F 76 18 147/85 93 L 01/01/19 04:00 98.6 F 87 18 109/64 92 L 01/01/19 00:00 98.7 F 88 18 139/74 93 L 12/31/18 20:00 16 12/31/18 19:02 98.1 F 102 H 20 151/71 92 L 12/31/18 18:00 98.4 F 101 H 18 110/66 94 L 12/31/18 16:30 83 20 115/65 95 12/31/18 15:50 86 12/31/18 15:41 85 12/31/18 15:40 99.0 F 99 16 126/62 92 L 12/31/18 15:30 97.8 F 99 18 120/74 96 12/31/18 14:30 98 18 111/59 94 L 12/31/18 14:00 101 H 18 109/50 95 12/31/18 12:39 98.0 F 100 18 120/76 96 Intake and Output 12/31/18 01/01/19 01/01/19 22:59 06:59 14:59 Other: Voiding Method Toilet Weight 104.36 kg PHYSICAL EXAMINATION: Patient is lying in the bed comfortably, no acute distress, awake alert and oriented.. HEENT: Normocephalic. Neck is supple. Pupils reactive. Nostrils clear. Oral cavity is moist. Ears reveal no drainage. Neck reveals no JVD, carotid bruits, or thyromegaly. CHEST EXAMINATION: Trachea is central. Symmetrical expansion. Right basilar coarse breath sounds and no wheezing. CARDIAC: Normal S1, S2 with no gallops. No murmurs ABDOMEN: Soft. Bowel sounds normal. No organomegaly. No abdominal bruits. Extremities: reveal no edema. No clubbing or cyanosis Neurologically awake, alert, oriented x3 with well-coordinated movements. No focal deficits noted Skin: No rash or skin lesions. Psychiatric: Coperative. Nonsuicidal Musculoskeletal: No joint swelling or deformity. Normal range of motion. Results CBC & Chem 7: 12/31/18 13:00 12/31/18 13:00 Labs: Abnormal Lab Results - Last 24 Hours (Table) 12/31/18 12/31/18 12/31/18 Range/Units 13:00 13:00 13:00 WBC 22.4 H (3.8-10.6) k/uL RBC 5.99 H (4.30-5.90) m/uL Hct 54.4 H (39.0-53.0) % Neutrophils # 17.8 H (1.3-7.7) k/uL Monocytes # 1.8 H (0-1.0) k/uL PT 12.6 H (9.0-12.0) sec INR 1.2 H (<1.2) Sodium 135 L (137-145) mmol/L Carbon Dioxide 21 L (22-30) mmol/L BUN 25 H (9-20) mg/dL Glucose 185 H (74-99) mg/dL POC Glucose (mg/dL) (75-99) mg/dL Total Bilirubin 2.4 H (0.2-1.3) mg/dL HDL Cholesterol (40-60) mg/dL 12/31/18 12/31/18 01/01/19 Range/Units 13:00 21:06 11:21 WBC (3.8-10.6) k/uL RBC (4.30-5.90) m/uL Hct (39.0-53.0) % Neutrophils # (1.3-7.7) k/uL Monocytes # (0-1.0) k/uL PT (9.0-12.0) sec INR (<1.2) Sodium (137-145) mmol/L Carbon Dioxide (22-30) mmol/L BUN (9-20) mg/dL Glucose (74-99) mg/dL POC Glucose (mg/dL) 150 H 178 H (75-99) mg/dL Total Bilirubin (0.2-1.3) mg/dL HDL Cholesterol 28 L (40-60) mg/dL Thrombosis Risk Factor Assmnt - DVT/VTE Prophylaxis DVT/VTE Prophylaxis: Pharmacologic Prophylaxis ordered - Choose All That Apply Each Risk Factor Represents 2 Points: Age 61-74 years Other congenital or acquired thrombophilia - If yes, enter type in comment: No Thrombosis Risk Factor Assessment Total Risk Factor Score: 2 Thrombosis Risk Factor Assessment Level: Low Risk Assessment and Plan Assessment: Bilateral pneumonia with right-sided pleural effusion Sepsis secondary to pneumonia Atypical chest pain likely pleuritic. Ruled out ACS. Diabetes type 2 [id number] Hypertension Hyperlipidemia Hypothyroidism History of cholecystectomy Previous history of smoking DVT prophylaxis with heparin subcu Plan: Patient will be continued on antibiotics in the form of ceftriaxone and azithromycin. Continue with IV hydration. Right-sided pleural effusion unli kvng due to CHF. Serial troponins negative. Cardiology is following. 2-D echocardiogram was ordered. Follow-up culture reports. Further recommendations based on the clinical course. Discussed with the family in detail at bedside. Time with Patient: Greater than 30
[2019-01-01 23:18] LABS: Glucose,Whole Blood 164 mg/dL (75-99)
[2019-01-02] MEDS: IPRATROPIUM-ALBUTEROL 3 ML NEB INHALATION SCH ×3 (00:05→07:51)
[2019-01-02] MEDS: HEPARIN SODIUM,PORCINE 5,000 UNIT/ML 1 ML VIAL SQ SCH ×4 (00:14→22:30)
[2019-01-02 05:41] LABS: Glucose,Whole Blood 140 mg/dL (75-99)
[2019-01-02] MEDS: INSULIN ASPART (NovoLOG) 100 UNIT/ML VIAL SQ SCH ×4 (06:32→19:49)
[2019-01-02] MEDS: glipiZIDE 5 MG TAB PO SCH ×2 (06:34→17:28)
[2019-01-02 06:45] LABS: Basophils % (A) 0 %; Eosinophils % (A) 0 %; HCT 47.8 % (39.0-53.0); HGB 15.4 gm/dL (13.0-17.5); Lymphocytes # (A) 2.1 k/uL (1.0-4.8); Lymphocytes % (A) 14 %; MCH 29.6 pg (25.0-35.0); MCHC 32.2 g/dL (31.0-37.0); Mean Platelet Volume 6.9; Monocytes # (A) 1.5 k/uL (0-1.0); Monocytes % (A) 10 %; Neutrophils # (A) 11.4 k/uL (1.3-7.7); Neutrophils % (A) 74 %; Platelet Count 198 k/uL (150-450); RDW 15.4 % (11.5-15.5); WBC 15.3 k/uL (3.8-10.6)
[2019-01-02 06:55] LABS: ALT 26 U/L (21-72); AST 21 U/L (17-59); Albumin 2.5 g/dL (3.5-5.0); Alkaline Phosphatase 106 U/L (38-126); Anion Gap 6 mmol/L; Blood Urea Nitrogen 22 mg/dL (9-20); Calcium 8.4 mg/dL (8.4-10.2); Carbon Dioxide 23 mmol/L (22-30); Chloride 106 mmol/L (98-107); Glucose 133 mg/dL (74-99); Potassium 4.6 mmol/L (3.5-5.1); Sodium 135 mmol/L (137-145); Total Bilirubin 1.7 mg/dL (0.2-1.3); Total Protein 5.6 g/dL (6.3-8.2)
[2019-01-02] MEDS: SODIUM CHLORIDE 0.9% 1,000 ML IV SCH (08:00)
[2019-01-02] MEDS: LISINOPRIL 10 MG TAB PO SCH (08:03)
[2019-01-02] MEDS: ASPIRIN 81 MG PO SCH (08:03)
[2019-01-02] MEDS: CHOLECALCIFEROL 1,000 UNIT TAB PO SCH (08:03)
[2019-01-02] MEDS: NAPROXEN 250 MG TAB PO SCH (08:03)
[2019-01-02] MEDS ORDERED: IPRATROPIUM-ALBUTEROL 3 ML NEB INHALATION PRN (08:05)
[2019-01-02 11:32] LABS: Glucose,Whole Blood 136 mg/dL (75-99)
--- NOTE | 2019-01-02 11:51 | P.PN ---
Subjective Progress Note Date: 01/02/19 This is a pleasant 73-year-old gentleman with history of hypertension, hyperlipidemia, hypothyroidism, diabetes, nonsmoker, who presented to the hospital with symptoms of right-sided chest pain which she describes as a sharp pain in the chest that is present only when he takes a deep breath or coughs. According to the patient he and his both have been dealing with a cough at home for the past few days. He denies any fever or chills at home. His chest x-ray on admission here showed a small right-sided pleural effusion and right basilar infiltrate. CTA of the chest was performed on arrival here as well which was negative for pulmonary embolism. It did reveal bilateral pulmonary i nfiltrates and atelectasis. Right-sided pleural effusion. EKG showed a sinus tachycardia with occasional PVCs. Chest x-ray showed worsening consolidation and pleural fluid on the right. Blood pressure on arrival 120/70 with a heart rate of 100, temperature 90.8, 96% on room air. Patient did have a low-grade temperature yesterday afternoon, temperature this morning 98.1, heart rate in the 70s, blood pressure 146/80, 93% on 2 L of oxygen. White blood cell count on arrival here 22.4, hemoglobin 17, platelet count 213. Sodium 135, potassium 4.9, BUN 25 and creatinine 1.0. Magnesium 1.8. Troponin 0.0123, BNP 209. 01/02/2019 Patient was seen and examined this morning, denies any further chest discomfort. Blood pressure 128/70 with a heart rate of 90, 92% on room air. Blood cell cou nt 15.3, hemoglobin 15.4, platelet count 198. Sodium 135, potassium 4.6, BUN 22 and creatinine 0.7. Total bilirubin 1.7. Echocardiogram with Doppler study was performed which revealed an ejection fraction of 55-60%. Objective - Vital Signs Vital signs: Vital Signs Temp 98.7 F 01/02/19 07:11 Pulse 92 01/02/19 08:06 Resp 18 01/02/19 07:11 BP 129/74 01/02/19 07:11 Pulse Ox 92 L 01/02/19 07:11 Intake & Output 01/01/19 01/02/19 01/02/19 18:59 06:59 18:59 Intake Total 1280 240 Balance 1280 240 Weight 104.36 kg 105.5 kg Intake: IV 800 Sodium Chloride 0.9% 1, 800 000 ml @ 100 mls/hr IV . Q10H [facility] Rx#:[id number] Oral 480 240 Other: Voiding Method Toilet Toilet Toilet # Voids 1 - Exam PHYSICAL EXAMINATION: GENERAL: 73-year-old gentleman in no acute distress at the time of my examination HEENT: Head is atraumatic, normocephalic. Pupils equal, round. Sclera anicteric. Conjunctiva are clear. Mucous membranes of the mouth are moist. Neck is supple. There is no elevated jugular venous pressure. No carotid bruit is heard. HEART EXAMINATION: Heart S1, S2 normal. No murmur or gallop heard. CHEST EXAMINATION: Lungs reveal diminished air entry to the right posterior base with fine crackles bilaterally. ABDOMEN: Soft, nontender. Bowel sounds are heard. No organomegaly noted. EXTREMITIES: 2+ peripheral pulses with trace evidence of peripheral edema and no calf tenderness noted. NEUROLOGIC patient is awake, alert and oriented 3 . - Labs CBC & Chem 7: 01/02/19 06:18 01/02/19 06:18 Labs: Abnormal Lab Results - Last 24 Hours (Table) 01/01/19 01/01/19 01/02/19 Range/Units 16:26 20:22 05:39 WBC (3.8-10.6) k/uL Neutrophils # (1.3-7.7) k/uL Monocytes # (0-1.0) k/uL Sodium (137-145) mmol/L BUN (9-20) mg/dL Glucose (74-99) mg/dL POC Glucose (mg/dL) 151 H 164 H 140 H (75-99) mg/dL Total Bilirubin (0.2-1.3) mg/dL Total Protein (6.3-8.2) g/dL Albumin (3.5-5.0) g/dL 01/02/19 01/02/19 01/02/19 Range/Units 06:18 06:18 11:27 WBC 15.3 H (3.8-10.6) k/uL Neutrophils # 11.4 H (1.3-7.7) k/uL Monocytes # 1.5 H (0-1.0) k/uL Sodium 135 L (137-145) mmol/L BUN 22 H (9-20) mg/dL Glucose 133 H (74-99) mg/dL POC Glucose (mg/dL) 136 H (75-99) mg/dL Total Bilirubin 1.7 H (0.2-1.3) mg/dL Total Protein 5.6 L (6.3-8.2) g/dL Albumin 2.5 L (3.5-5.0) g/dL Microbiology - Last 24 Hours (Table) 12/31/18 15:10 Blood Culture - Preliminary Blood No Growth after 24 hours Assessment and Plan Plan: Assessment and plan #1 chest pain, atypical for acute coronary syndrome, pleuritic in nature. Troponins negative 3. EKG shows a sinus tachycardia with occasional to frequent PVCs. #2 bilateral infiltrate with evidence of right sided pleural effusion, patient currently on antibiotics for pneumonia. #3 hypertension #4 diabetes #5 hyperlipidemia #6 hypothyroidism Plan Echocardiogram with Doppler study was performed which revealed a normal left ventricular systolic function. Blood pressure today 128/70. From cardiology's perspective he may be able to be discharged home today, we'll make him a follow- up appointment to see Dr. Ching in the office in approximately 4 weeks. DNP note has been reviewed, I agree with a documented findings and plan of care. Patient was seen and examined.
[2019-01-02] MEDS ORDERED: AZITHROMYCIN 500 MG TAB PO SCH (16:00)
[2019-01-02 16:27] LABS: Glucose,Whole Blood 145 mg/dL (75-99)
[2019-01-02] MEDS: LEVOTHYROXINE 75 MCG TAB PO SCH (19:49)
[2019-01-02] MEDS: ATORVASTATIN 20 MG TAB PO SCH (19:49)
[2019-01-03] MEDS: INSULIN ASPART (NovoLOG) 100 UNIT/ML VIAL SQ SCH ×2 (05:40→12:24)
[2019-01-03 05:59] LABS: Glucose,Whole Blood 103 mg/dL (75-99)
[2019-01-03] MEDS: glipiZIDE 5 MG TAB PO SCH (06:18)
[2019-01-03 07:44] LABS: Anion Gap 7 mmol/L; Blood Urea Nitrogen 21 mg/dL (9-20); Calcium 8.5 mg/dL (8.4-10.2); Carbon Dioxide 24 mmol/L (22-30); Chloride 105 mmol/L (98-107); Glucose 105 mg/dL (74-99); Magnesium 1.9 mg/dL (1.6-2.3); Potassium 4.6 mmol/L (3.5-5.1); Sodium 136 mmol/L (137-145)
[2019-01-03 07:47] LABS: Anisocytosis Slight; Basophils # (A) 0.1 k/uL (0-0.2); Basophils % (A) 0 %; Eosinophils # (A) 0.2 k/uL (0-0.7); Eosinophils % (A) 1 %; HCT 47.9 % (39.0-53.0); HGB 15.7 gm/dL (13.0-17.5); Lymphocytes # (A) 2.7 k/uL (1.0-4.8); Lymphocytes % (A) 17 %; MCH 29.5 pg (25.0-35.0); MCHC 32.9 g/dL (31.0-37.0); MCV 89.7 fL (80.0-100.0); Mean Platelet Volume 7.6; Monocytes # (A) 1.5 k/uL (0-1.0); Monocytes % (A) 9 %; Neutrophils # (A) 11.3 k/uL (1.3-7.7); Neutrophils % (A) 71 %; Platelet Count 245 k/uL (150-450); RBC 5.34 m/uL (4.30-5.90); WBC 15.9 k/uL (3.8-10.6)
[2019-01-03] MEDS ORDERED: TESTOSTERONE CYPIONATE 200 MG/ML 1ML VIAL IM SCH (09:00)
[2019-01-03] MEDS ORDERED: REGADENOSON 0.4 MG/5 ML SYRINGE IV ONE (09:23)
[2019-01-03] MEDS ORDERED: CAFFEINE CITRATE 60 MG/3 ML VIAL IV PRN (09:23)
[2019-01-03] MEDS ORDERED: AMINOPHYLLINE 500 MG/20 ML VIAL IV PRN (09:23)
[2019-01-03 11:21] LABS: Glucose,Whole Blood 125 mg/dL (75-99)
[2019-01-03 11:32] VITALS: RESP 16; TEMP 98.5
--- NOTE | 2019-01-03 11:45 | P.PN ---
<Anna Orellana E - Last Filed: 01/03/19 11:39> Subjective Progress Note Date: 01/03/19 This is a pleasant 73-year-old gentleman with history of hypertension, hyperlipidemia, hypothyroidism, diabetes, nonsmoker, who presented to the hospital with symptoms of right-sided chest pain which she describes as a sharp pain in the chest that is present only when he takes a deep breath or coughs. According to the patient he and his both have been dealing with a cough at home for the past few days. He denies any fever or chills at home. His chest x-ray on admission here showed a small right-sided pleural effusion and right basilar infiltrate. CTA of the chest was performed on arrival here as well which was negative for pulmonary embolism. It did reveal bilateral pulmonary infiltrates and atelectasis. Right-sided pleural effusion. EKG showed a sinus tachycardia with occasional PVCs. Chest x-ray showed worsening consolidation and pleural fluid on the right. Blood pressure on arrival 120/70 with a heart rate of 100, temperature 90.8, 96% on room air. Patient did have a low-grade temperature yesterday afternoon, temperature this morning 98.1, heart rate in the 70s, blood pressure 146/80, 93% on 2 L of oxygen. White blood cell count on arrival here 22.4, hemoglobin 17, platelet count 213. Sodium 135, potassium 4.9, BUN 25 and creatinine 1.0. Magnesium 1.8. Troponin 0.0123, BNP 209. 01/02/2019 Patient was seen and examined this morning, denies any further chest discomfort. Blood pressure 128/70 with a heart rate of 90, 92% on room air. Blood cell count 15.3, hemoglobin 15.4, platelet count 198. Sodium 135, potassium 4.6, BUN 22 and creatinine 0.7. Total bilirubin 1.7. Echocardiogram with Doppler study was performed which revealed an ejection fraction of 55-60%. 01/03 2019 Patient was seen and examined this morning, overall feeling well. Breathing is stable, denies any chest discomfort. At the time and was examining him it was noted that his heart was racing quite fast. In the monitor room it appeared that the patient was in an atrial tachycardia. Dr. Ching did do carotid massage which confirmed the atrial tachycardia, patient converted back to normal sinus rhythm. He is having bigeminal PVCs. He was asymptomatic during all of this and continues to feel well. Dr. Ching recommended the patient undergo a Lexiscan stress test prior to being discharged home today, because he had breakfast, and coffee this could not be performed today. Dr. Ching's recommendation is to continue to monitor the patient into the afternoon, if his PVCs settled down he may be able to be discharged home. He will follow-up with Dr. Ching in the office in an outpatient Lexiscan will be performed. Objective - Vital Signs Vital signs: Vital Signs Temp 98.2 F 01/03/19 08:00 Pulse 96 01/03/19 08:02 Resp 20 01/03/19 08:00 BP 123/72 01/03/19 08:00 Pulse Ox 92 L 01/03/19 08:00 Intake & Output 01/02/19 01/03/19 01/03/19 18:59 06:59 18:59 Intake Total 1400 200 240 Balance 1400 200 240 Weight 106.8 kg Intake: IV 800 Sodium Chloride 0.9% 1, 800 000 ml @ 100 mls/hr IV . Q10H [facility] Rx#:[id number] Oral 600 200 240 Other: Voiding Method Toilet Toilet # Voids 1 - Exam PHYSICAL EXAMINATION: GENERAL: 73-year-old gentleman in no acute distress at the time of my examination HEENT: Head is atraumatic, normocephalic. Pupils equal, round. Sclera anicteric. Conjunctiva are clear. Mucous membranes of the mouth are moist. Neck is supple. There is no elevated jugular venous pressure. No carotid bruit is heard. HEART EXAMINATION: Heart S1, S2 normal. No murmur or gallop heard. CHEST EXAMINATION: Lungs reveal diminished air entry to the right posterior base with fine crackles bilaterally. ABDOMEN: Soft, nontender. Bowel sounds are heard. No organomegaly noted. EXTREMITIES: 2+ peripheral pulses with trace evidence of peripheral edema and no calf tenderness noted. NEUROLOGIC patient is awake, alert and oriented 3 . - Labs CBC & Chem 7: 01/03/19 06:44 01/03/19 06:44 Labs: Abnormal Lab Results - Last 24 Hours (Table) 01/02/19 01/02/19 01/03/19 Range/Units 11:27 16:19 05:58 WBC (3.8-10.6) k/uL RDW (11.5-15.5) % Neutrophils # (1.3-7.7) k/uL Monocytes # (0-1.0) k/uL Sodium (137-145) mmol/L BUN (9-20) mg/dL Glucose (74-99) mg/dL POC Glucose (mg/dL) 136 H 145 H 103 H (75-99) mg/dL 01/03/19 01/03/19 Range/Units 06:44 06:44 WBC 15.9 H (3.8-10.6) k/uL RDW 16.0 H (11.5-15.5) % Neutrophils # 11.3 H (1.3-7.7) k/uL Monocytes # 1.5 H (0-1.0) k/uL Sodium 136 L (137-145) mmol/L BUN 21 H (9-20) mg/dL Glucose 105 H (74-99) mg/dL POC Glucose (mg/dL) (75-99) mg/dL Microbiology - Last 24 Hours (Table) 12/31/18 15:10 Blood Culture - Preliminary Blood No Growth after 48 hours Assessment and Plan Plan: Assessment and plan #1 chest pain, atypical for acute coronary syndrome, pleuritic in nature. Troponins negative 3. EKG shows a sinus tachycardia with occasional to frequent PVCs. #2 bilateral infiltrate with evidence of right sided pleural effusion, patient currently on antibiotics for pneumonia. #3 hypertension #4 diabetes #5 hyperlipidemia #6 hypothyroidism\ #7 atrial tachycardia Plan Patient did have carotid massage today performed by Dr. Ching, converted to normal sinus rhythm and remains in a sinus rhythm at this time. From our perspective he may be able to be discharged home today. We will schedule a Lexiscan stress test in the office and follow-up appointment with Dr. Cardenas. DNP note has been reviewed, I agree with a documented findings and plan of care. Patient was seen and examined. <Cricket Ching - Last Filed: 01/03/19 11:45> Objective - Vital Signs Vital signs: Vital Signs Temp 98.5 F 01/03/19 11:31 Pulse 92 01/03/19 11:31 Resp 16 01/03/19 11:31 BP 135/73 01/03/19 11:31 Pulse Ox 91 L 01/03/19 11:31 Intake & Output 01/02/19 01/03/19 01/03/19 18:59 06:59 18:59 Intake Total 1400 200 240 Balance 1400 200 240 Weight 106.8 kg Intake: IV 800 Sodium Chloride 0.9% 1, 800 000 ml @ 100 mls/hr IV . Q10H [facility] Rx#:[id number] Oral 600 200 240 Other: Voiding Method Toilet Toilet # Voids 1 - Labs CBC & Chem 7: 01/03/19 06:44 01/03/19 06:44 Labs: Abnormal Lab Results - Last 24 Hours (Table) 01/02/19 01/03/19 01/03/19 Range/Units 16:19 05:58 06:44 WBC 15.9 H (3.8-10.6) k/uL RDW 16.0 H (11.5-15.5) % Neutrophils # 11.3 H (1.3-7.7) k/uL Monocytes # 1.5 H (0-1.0) k/uL Sodium (137-145) mmol/L BUN (9-20) mg/dL Glucose (74-99) mg/dL POC Glucose (mg/dL) 145 H 103 H (75-99) mg/dL 01/03/19 01/03/19 Range/Units 06:44 11:19 WBC (3.8-10.6) k/uL RDW (11.5-15.5) % Neutrophils # (1.3-7.7) k/uL Monocytes # (0-1.0) k/uL Sodium 136 L (137-145) mmol/L BUN 21 H (9-20) mg/dL Glucose 105 H (74-99) mg/dL POC Glucose (mg/dL) 125 H (75-99) mg/dL Microbiology - Last 24 Hours (Table) 12/31/18 15:10 Blood Culture - Preliminary Blood No Growth after 48 hours
--- NOTE | 2019-01-03 11:46 | P.PN ---
Subjective Mr. Frederick was admitted for management of pneumonitis. He is improving steadily with this morning he is found to be in supraventricular tachycardia. Current sinus massage was performed with abrupt termination. Following that he had very frequent PVCs and ventricular couplets. His LV function is normal He has hypertension I would suggest outpatient Lexiscan cardiac stress test This patient has bilateral osteoarthritis and is unable to run on a treadmill or an incline I will see him thereafter Objective - Vital Signs Vital signs: Vital Signs Temp 98.5 F 01/03/19 11:31 Pulse 92 01/03/19 11:31 Resp 16 01/03/19 11:31 BP 135/73 01/03/19 11:31 Pulse Ox 91 L 01/03/19 11:31 Intake & Output 01/02/19 01/03/19 01/03/19 18:59 06:59 18:59 Intake Total 1400 200 240 Balance 1400 200 240 Weight 106.8 kg Intake: IV 800 Sodium Chloride 0.9% 1, 800 000 ml @ 100 mls/hr IV . Q10H [facility] Rx#:[id number] Oral 600 200 240 Other: Voiding Method Toilet Toilet # Voids 1 - Labs CBC & Chem 7: 01/03/19 06:44 01/03/19 06:44 Labs: Abnormal Lab Results - Last 24 Hours (Table) 01/02/19 01/03/19 01/03/19 Range/Units 16:19 05:58 06:44 WBC 15.9 H (3.8-10.6) k/uL RDW 16.0 H (11.5-15.5) % Neutrophils # 11.3 H (1.3-7.7) k/uL Monocytes # 1.5 H (0-1.0) k/uL Sodium (137-145) mmol/L BUN (9-20) mg/dL Glucose (74-99) mg/dL POC Glucose (mg/dL) 145 H 103 H (75-99) mg/dL 01/03/19 01/03/19 Range/Units 06:44 11:19 WBC (3.8-10.6) k/uL RDW (11.5-15.5) % Neutrophils # (1.3-7.7) k/uL Monocytes # (0-1.0) k/uL Sodium 136 L (137-145) mmol/L BUN 21 H (9-20) mg/dL Glucose 105 H (74-99) mg/dL POC Glucose (mg/dL) 125 H (75-99) mg/dL Microbiology - Last 24 Hours (Table) 12/31/18 15:10 Blood Culture - Preliminary Blood No Growth after 48 hours
[2019-01-03] MEDS ORDERED: METOPROLOL SUCCINATE (ER) 50 MG TAB.ER.24H PO SCH (12:00)
[2019-01-03] MEDS: CHOLECALCIFEROL 1,000 UNIT TAB PO SCH (12:21)
[2019-01-03] MEDS: ASPIRIN 81 MG PO SCH (12:21)
[2019-01-03] MEDS: NAPROXEN 250 MG TAB PO SCH (12:22)
[2019-01-03 13:25] VITALS: BP 115/68; PULSE 84
[2019-01-03] MEDS: LISINOPRIL 10 MG TAB PO SCH (13:30)
== END 2019-01-03 16:49 | disposition home or self-care (01) | DRG 871 ==
LOC: EC 12:36 → 3SCARD 15:20
PROVIDERS: ADMIT Hospitalist; ATTEND Hospitalist
DX: A41.9 Sepsis, unspecified organism (principal); J18.9 Pneumonia, unspecified organism; I47.1 Supraventricular tachycardia; J98.11 Atelectasis; J90 Pleural effusion, not elsewhere classified; E03.9 Hypothyroidism, unspecified; E11.9 Type 2 diabetes mellitus without complications; E78.5 Hyperlipidemia, unspecified; I10 Essential (primary) hypertension; I44.7 Left bundle-branch block, unspecified; M19.90 Unspecified osteoarthritis, unspecified site; Z79.84 Long term (current) use of oral hypoglycemic drugs; Z79.899 Other long term (current) drug therapy; Z83.3 Family history of diabetes mellitus; Z87.891 Personal history of nicotine dependence; Z90.49 Acquired absence of other specified parts of digestive tract; Z79.890 Hormone replacement therapy
CPT/HCPCS: 36415; 71046; 71275; 80048; 80053; 80061; 83036; 83690; 83735; 83880; 84443; 84484; 85025; 85610; 85730; 87040; 87502; 93005; 93306; 94640; 94760; 96361; 96365; 96367; 99291

== ENCOUNTER → 2019-03-12 | Outpatient (CLI) | payer MEDICARE ==
[2019-03-12 17:17] LABS: African American GFR (CKD) >90 (>60 ml/min/1.73 sqM); Blood Urea Nitrogen 21 mg/dL (9-20)
--- NOTE | 2019-03-12 22:25 | CT ---
EXAMINATION TYPE: CT chest w con DATE OF EXAM: 03/12/2019 COMPARISON: CTA chest December 31, [address] August 07, 2018. HISTORY: pulmonary nodule CT DLP: 583 mGycm. Automated Exposure Control for Dose Reduction was Utilized. TECHNIQUE: CT scan of the thorax is performed following with IV Contrast, patient injected with 100 mL of Isovue 300. FINDINGS: LUNGS: There is a persistent small right pleural fluid collection which is fairly thick wall and does not completely layer dependently with smaller loculated components lateral lung base and partial mel cification of the wall posteriorly. Empyema is not excluded. Correlate clinically. Some adjacent comp ressive atelectasis in the right lung base is redemonstrated. Fluid collection size not significantly changed from most recent study. Appearance however is different. Left lung remains clear. Calcified pleural plaques bilaterally are redemonstrated. No suspicious greater than 4 mm parenchymal nodules a re identified currently. No pneumothorax is seen. Tracheobronchial tree is patent. MEDIASTINUM: There are no greater than 1 cm hilar or mediastinal lymph nodes. No pericardial effusi on is seen. There is fairly severe three-vessel coronary artery calcification redemonstrated which i s noted marker for underlying coronary artery disease. OTHER: Small degree of bilateral gynecomastia is noted. Small hiatal hernia is seen. Moderate multile yandy spurring in the thoracic spine is present. Cholecystectomy clips are noted. There is simple appea ring 2.2 cm cyst left kidney midpole level axial image 65. IMPRESSION: No suspicious nodules. Persistent small right pleural fluid collection that does not comp letely layer dependently enhanced loculated component lateral base with fairly thick wall, correlate clinically to exclude empyema. 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
== END | disposition home or self-care (01) ==
LOC: RADCTMAIN 16:12
PROVIDERS: ATTEND Family Medicine
DX: R91.1 Solitary pulmonary nodule (principal); Z77.090 Contact with and (suspected) exposure to asbestos; Z01.812 Encounter for preprocedural laboratory examination
CPT/HCPCS: 82565; 84520; 71260; 36415; Q9967

== ENCOUNTER 2019-04-24 08:14 | Day surgery (SDC) | payer MEDICARE ==
[2019-04-23 08:45] VITALS: BMI 31.2
[2019-04-24 08:34] VITALS: TEMP 98.2
[2019-04-24 08:48] LABS: Glucose,Whole Blood 105 mg/dL (75-99)
[2019-04-24] MEDS: LACTATED RINGERS 1,000 ML IV SCH ×2 (08:49→08:58)
[2019-04-24] MEDS ORDERED: PROPOFOL 10 MG/ML 20 ML VIAL IV ONE (09:01)
--- NOTE | 2019-04-24 10:10 | P.PCN ---
Date of Procedure: 04/24/19 Description of Procedure: BRIEF HISTORY: Patient is a 74-year-old pleasant male scheduled for an elective colonoscopy as a part of evaluation after positive cologard. The patient denies any change in bowel habits, constipation, diarrhea or blood per rectum. No prior colonoscopy reported. No family history of colon cancer. PROCEDURE PERFORMED: Colonoscopy with polypectomy. PREOPERATIVE DIAGNOSIS: Positive cologard, no prior colonoscopy, screening for malignant neoplasm of the colon. ESTIMATED BLOOD LOSS: Minimal. IV sedation per Anesthesia. PROCEDURE: After informed consent was obtained, the patient, was brought into the endoscopy unit. IV sedation was administered by Anesthesia under continuous monitoring. Digital rectal examination was normal. Initially the Olympus CF-190 flexible video colonoscope was then inserted in the rectum, gradually advanced into the cecum without any difficulty. The terminal ileum was intubated and appeared normal. Careful examination was performed as the scope was gradually being withdrawn. Ileocecal valve and the appendiceal orifice were visualized and appeared normal. Prep was excellent. Mucosa of the cecum, ascending colon, transverse colon, descending colon, sigmoid colon, and rectum appeared normal. A diminutive 3 mm ascending colon polyp was removed with cold forcep polypectomy. 2 diminutive 2 mm sigmoid colon polyps were removed with cold forcep polypectomy. Mild left-sided diverticulosis. Mild internal hemorrhoids. Retroflexion was performed in the rectum and no lesions were seen. The patient tolerated the procedure well. IMPRESSION: Cold forcep polypectomy of diminutive polyps in the ascending colon and sigmoid. Mild diverticulosis. Mild internal hemorrhoids. RECOMMENDATIONS: Findings of this examination were discussed with the patient his . Okay to resume high-fiber diet. Okay to resume medications. Repeat colonoscopy in 3-5 years pending pathology from polypectomy.
[2019-04-24 10:11] VITALS: RESP 16
[2019-04-24 11:27] VITALS: BP 119/70; PULSE 63
== END 2019-04-24 11:25 | disposition home or self-care (01) ==
LOC: ORWHC2ENDO 08:14
PROVIDERS: ATTEND Internal Medicine
DX: D12.2 Benign neoplasm of ascending colon (principal); K57.30 Diverticulosis of large intestine without perforation or abscess without bleeding; K64.8 Other hemorrhoids; K63.5 Polyp of colon; E07.9 Disorder of thyroid, unspecified; I10 Essential (primary) hypertension; E11.9 Type 2 diabetes mellitus without complications; Z79.890 Hormone replacement therapy; Z79.84 Long term (current) use of oral hypoglycemic drugs; Z79.899 Other long term (current) drug therapy; Z83.3 Family history of diabetes mellitus; Z87.891 Personal history of nicotine dependence; Z90.49 Acquired absence of other specified parts of digestive tract
CPT/HCPCS: 88305; 45380; J2704